=== PATIENT | male | born 1985 | race Caucasian/White ===

== ENCOUNTER 2020-06-29 10:59 | Emergency (ER) | payer OTHER, SELFPAY ==
[2020-06-29 11:08] VITALS: BP 131/73; PULSE 64; RESP 14; TEMP 36.9; O2SAT 98
--- NOTE | 2020-06-29 11:17 | ED.EYEPROB ---
HPI - Eye Problem General Chief complaint: Eye Problems Stated complaint: Eye Time Seen by Provider: 06/29/20 11:15 Source: patient and RN notes reviewed Mode of arrival: ambulatory Limitations: no limitations History of Present Illness HPI Narrative: 34-year-old male presents with concern for left eye burning, pain, redness, tearing. Reports symptoms started when he woke up this morning. Reports he wears contact lenses, occasionally sleeps in his contact lenses, did not sleep in the last night. He denies any direct trauma, foreign body, purulent drainage, upper respiratory symptoms MD chief complaint: eye pain and eye redness Related Data Home Medications Medication Instructions Recorded Confirmed pantoprazole 40 mg tablet,delayed 40 mg PO QAM 01/12/20 06/29/20 release Allergies Allergy/AdvReac Type Severity Reaction Status Date / Time No Known Allergies Allergy Verified 06/29/20 11:17 Review of Systems Review of Systems: Narrative: CONSTITUTIONAL: Denies malaise, chills, sweats, or fever. EYES: Denies visual changes. Reports left eye burning, pain, redness, watery discharge. ENT: Denies rhinorrhea, congestion, sinus pain, otalgia or sore throat. CARDIOVASCULAR: Denies chest pain, palpitations, or edema. RESPIRATORY: Denies cough or dyspnea. NEUROLOGIC: Denies headache. All systems reviewed & are unremarkable except as noted in HPI and below PMFSH Social History Social History Smoking status: Current every day smoker Second hand tobacco smoke exposure: Yes Alcohol intake: current Comments At time of signature, agree with nursing past medical, surgical, social and family history. There is no relevant family history pertinent to the presenting complaint Exam Narrative: Exam Narrative: GENERAL: Well-appearing, well-nourished, and in no acute distress. HEAD: Normocephalic, atraumatic. EYES: Right eye PERRLA, conjunctivae clear, and EOMI. left eye sclera injected, no foreign body noted, corneal abrasion noted upon Nguyen lamp exam ENT: Mucous membranes moist. NECK: Supple. CHEST: No respiratory distress. Speaks in full sentences. HEART: Regular rate and rhythm SKIN: Warm, dry, no rash. NEURO: Alert and oriented x3. PSYCH: Normal mood and affect Course Course Emergency Course: Patient is aware of diagnosis, understands and agrees to treatment plan. Anticipatory guidance given. Patient agrees to follow-up as directed and is aware of reasons to seek care at the emergency department. Portions of this record may have been created with voice recognition software Vital Signs Vital signs: Vital Signs Temperature 98.5 F 06/29/20 11:08 Pulse Rate 64 06/29/20 11:08 Respiratory Rate 14 06/29/20 11:08 Blood Pressure 131/73 06/29/20 11:08 Pulse Oximetry 98 06/29/20 11:08 Temperature 98.5 F 06/29/20 11:08 Pulse Rate 64 06/29/20 11:08 Respiratory Rate 14 06/29/20 11:08 Blood Pressure 131/73 06/29/20 11:08 Pulse Oximetry 98 06/29/20 11:08 Reviewed. Pt has been instructed to follow up with his primary care provider within the next week regarding his elevated blood pressure today. Procedures Other Procedure Procedure 1: Other Procedure: Tetracaine 1 gtt instilled in left eye, fluorescein stain applied. Corneal abrasion noted upon nguyen lamp exam at approximately 12o'clock in relation to the pupil. No foreign bodies or Mk sign noted. MDM - Eye Problem MDM Narrative Medical decision making narrative: Consideration of the following conditions may be warranted for the presenting problem, they are not final diagnoses: Bacterial conjunctivitis, allergic conjunctivitis, viral conjunctivitis, foreign body, blepharitis, chalazion, hordeolum, corneal abrasion. Exam findings show no acute concerns or changes; patient is non-toxic appearing and is in no distress. Patient is appropriate for outpatient treatment an
== END 2020-06-29 11:40 | disposition home or self-care (01) ==
PROVIDERS: Emergency Provider Nurse Practitioner; PCP Family Medicine
DX: S05.02XA Injury of conjunctiva and corneal abrasion without foreign body, left eye, initial encounter (principal); X58.XXXA Exposure to other specified factors, initial encounter; F17.200 Nicotine dependence, unspecified, uncomplicated; K21.9 Gastro-esophageal reflux disease without esophagitis
CPT/HCPCS: 99213; A9270; G0463

== ENCOUNTER 2022-03-16 15:11 | Emergency (ER) | payer OTHER, SELFPAY ==
[2022-03-16 15:22] VITALS: BP 125/70; PULSE 83; RESP 18; TEMP 37.2; O2SAT 99
--- NOTE | 2022-03-16 15:45 | ED.URI ---
HPI - URI/Sore Throat General Chief Complaint: Upper Respiratory Infection Stated Complaint: Chest [place]in Time Seen by Provider: 03/16/22 15:46 Source: patient, RN notes reviewed and old records reviewed Mode of arrival: ambulatory Limitations: no limitations History of Present Illness HPI Narrative: 36 year old male who presents to [facility] with complaints of cough and upper chest tightness with fevers up to 103F axillary for the past 4 days. Patient states that his symptoms have increased with cogh becoming productive of yellowish mucous and he is now wheezing. Patient does have history of asthma and continues to smoke 1 pack of cigarettes daily. Patient has been taking DayQuil, NyQuil, Tylenol and also some Pepto Bismol for one episode of stated diarrhea. Patient has not had COVID vaccinations or influenza shot. MD elicited complaint: fever, cough and other (wheezing) Pertinent past history: asthma Onset (ago): day(s) (4) Consistency: progressively worsening Description of mucous: yellow Treatments prior to arrival: acetaminophen, cold medicine and other (Pepto Bismol) Related Data Home Medications Medication Instructions Recorded Confirmed albuterol sulfate 1 inh INHALATION QID PRN 03/16/22 03/16/22 multivitamin [Daily Multivitamin] 1 tablet PO DAILY PRN 03/16/22 03/16/22 Allergies Allergy/AdvReac Type Severity Reaction Status Date / Time No Known Allergies Allergy Verified 03/16/22 15:32 Review of Systems Review of Systems: CONSTITUTIONAL: Positive for fever, chills, or sweats. EYES: Denies visual changes, redness, or discharge. ENT: Denies rhinorrhea, congestion, sore throat, or otalgia. CARDIOVASCULAR: Denies chest pain reports tightness with cough no palpitations, or edema. RESPIRATORY: Positive for productive cough or dyspnea. GASTROINTESTINAL: Denies abdominal pain, nausea, vomiting, or diarrhea. GENITOURINARY: Denies dysuria or hematuria. SKIN: Denies rash or itching. MUSCULOSKELETAL: Denies back pain, joint pain, or myalgia. NEUROLOGIC: Denies headache, numbness, or weakness. PSYCHIATRIC: Denies anxiety or depression. [facility] Past Medical History Medical History (Updated 03/17/22 @ 00:00 by Francisco Canela) Asthma Borderline glaucoma Migraine Surgical History Surgical History H/O craniotomy Family History Family History Mother Hypertension Patient's mother is in good health Family history of malignant neoplasm of uterus Father Patient's father is in good health Family history of kidney stones Family history of lung cancer Sibling Patient's sister is in good health Patient's brother is in good health Grandparent Cerebrovascular accident Diabetes mellitus Family history of glaucoma Social History Social History Smoking status: Current every day smoker Second hand tobacco smoke exposure: Yes Alcohol intake: current Comments At time of signature, agree with nursing past medical, surgical, social and family history. There is no relevant family history pertinent to the presenting complaint Exam Narrative: GENERAL: Ill-appearing, well-nourished, and in no acute distress. HEAD: Normocephalic, atraumatic. EYES: PERRLA and EOMI. ENT: Nares clear, no rhinorrhea or epistaxis. Mucous membranes moist.TM's normal with good light reflex, throat pink with no exudates or lesions no tonsil swelling NECK: Supple.no lymphadenopathy CHEST: Scattered wheezing to auscultation. No respiratory distress. productive cough SAO2 99% on room air, no tachypnea HEART: Regular rate and rhythm. No murmur heard. Normal peripheral pulses. ABDOMEN: Soft, nontender, nondistended, normal active bowel sounds. EXTREMITIES: Normal range of motion. No edema. SKIN: Warm, dry, no rash. NEURO: No focal deficits. Alert and oriented x3. [place]
[2022-03-16] MEDS: IPRATROPIUM BR 0.02% INH SOLN 0.5 MG/2.5 ML VIAL INHALATION (15:55)
[2022-03-16] MEDS: ALBUTEROL SULFATE NEB 2.5 MG/3 ML INH INHALATION (15:56)
== END 2022-03-16 16:52 | disposition home or self-care (01) ==
PROVIDERS: Emergency Provider Registered Nurse; PCP Family Medicine
DX: J40 Bronchitis, not specified as acute or chronic (principal); F17.200 Nicotine dependence, unspecified, uncomplicated
CPT/HCPCS: 94640; 99213; G0463